=== PATIENT | female | born 1980 | race Caucasian/White ===

== ENCOUNTER 2017-12-15 07:22 | Day surgery (SDC) | payer MEDICAID, SELFPAY ==
[2017-12-15] VITALS (11 sets, daily range): BP systolic 92–132; BP diastolic 55–71; PULSE 54–87; RESP 14–18; TEMP 36.2–37.2; O2SAT 95–99; BMI 30.3; BMI 31.1
[2017-12-15 07:47] LABS: Internal QC Validated? YES +Cl - CLEAR BKGD; Pregnancy, Urine Negative Negative
[2017-12-15 07:52] LABS: Hematocrit 40.9 % (37-47); Mean Corp Hgb Conc 34.2 g/gl (32-36); Mean Corpuscular Hgb 30.6 pg (27.0-32.0); Mean Corpuscular Volume 89.3 fL (81-99); Mean Platelet Vol. 9.7 fl (6.2-12.0); Platelet Count 237 K/mm3 (150-450); RBC Distribution Width CV 13.1 % (11.6-14.6); RBC Distribution Width SD 42.6 fl (35.1-43.9); Red Blood Count 4.58 M/mm3 (4.2-5.4); Scan Indicated on CBC? Y/N NO; White Blood Count 6.8 K/mm3 (4.4-11.0)
[2017-12-15] MEDS: Acetaminophen 500 MG Tablet 1000 MG PO ×3 (07:53→22:37)
[2017-12-15] MEDS: Celecoxib 200 MG Capsule PO (07:53)
--- NOTE | 2017-12-15 09:30 | HYST_PTH ---
PATIENT: NEVIN MAYER LOC: [facility] [place] U#:[id number] AGE/SX: 37/F ROOM: RE12/15/[address]: Dr. Elayne Vines MD : 1980 BED: DIS: 12/16/2017 SPEC #: [id number] RECD: 12/15/17 12:12 STATUS: JACOB FIDEL #: [id number] TAVON: 12/15/17 09:[address]: Elayne Vines DEPT: SURGICAL PATHOLOGY RECD BY: Moncho Bowman ENTERED: 12/15/17 13:13 SP TYPE: HYSTERECT OTHR DR: Dr. Hosea Zamora MD Tissues: Uterus, NOS Procedures: Surgery Specimen Level V HEADER OPERATION: Laparoscopic-assisted vaginal hysterectomy, laparoscopic bilateral salpingectomy PRE-OP DIAGNOSIS: Dysmenorrhea, adenomyosis, status post NovaSure ablation TISSUE SUBMITTED: Uterus and bilateral fallopian tubes MICROSCOPIC DIAGNOSIS Uterus and bilateral fallopian tubes, vaginal hysterectomy and bilateral salpingectomy: Cervix ? mild chronic cystic cervicitis. Endometrium ? extensive changes consistent with endometrial ablation and focal area of disordered proliferative endometrium. Myometrium ? adenomyosis. Bilateral fallopian tubes - no pathologic diagnosis. SATYA:marlene 12/16/17 MICROSCOPIC DESCRIPTION Slides are reviewed. GROSS DESCRIPTION Received in fixative is one container labeled with the patient's name and designated uterus and bilateral fallopian tubes. The specimen consists of a hysterectomy specimen consisting of uterus with cervix and attached left fallopian tube and detached right fallopian tube. The uterus with cervix weighs 91 gm and measures 7.5 x 6 x 4 cm. The serosal surface is focally ragged, otherwise, smooth and glistening. Instrumentation rivera are noted. The ectocervical mucosa is padilla, glistening and unremarkable. The external os is oval in contour. The endocervical canal measures 2.5 cm in length and the endocervical mucosa is padilla, glistening and unremarkable. The endometrial cavity is elongated and shows focal fibrous area and measures 3 cm in length and 0.5 cm in width. The endometrium is congested without any mass lesion and measures 0.1 cm in thickness. Sections of the uterine wall reveal an ill-defined nodular mass measuring 1 cm in greatest dimension. The uninvolved uterine wall measures up to 2 cm in thickness. The detached right fallopian tube measures 6 cm in length and 0.7 cm in diameter. A small portion of the fallopian tube is also noted most likely representing proximal portion which measures 0.5 x 0.5 x 0.3 cm. The left fallopian tube measures 7 cm in length and 0.9 cm in diameter. The fimbrial end is identified. The fallopian tube is interrupted in the middle consistent with previous tubal occlusion. Sections of both fallopian tubes reveal unremarkable cut surfaces. [employer] sections are submitted in nine cassettes as follows: 1 - anterior cervix, 2 - posterior cervix, 3 & 4 - anterior uterine wall, 5 & 6 - posterior uterine wall, 7 ? ill-defined mas, entirely submitted, 8?? right fallopian tube (the detached proximal end is inked black), 9 ? left fallopian tube. / SATYA:rg 12/15/17 TC:5 CPT: 59435
[2017-12-15] MEDS: Cefazolin 2 GM in 0.9% Normal Saline 100 ML IV (10:47)
[2017-12-15] MEDS: Bupivacaine 0.25% 30 ML Vial (11:40)
--- NOTE | 2017-12-15 11:46 | OP.PCM_ITS ---
Report of Operation Date of Procedure: 12/15/17 Pre-Operative Diagnosis: adenomyosis and dysmenorrhea Post-Operative Diagnosis: same Surgery/Procedure Performed:: Laparoscopic assisted vaginal hysterectomy with bilateral salpingectomy Description of Surgical Findings:: Enlarged boggy uterus, normal-appearing cervix, bilateral tubes and ovaries appeared normal other than there was evidence of previous tubal ligation service control operator: Nan Ryan service control operator: Wade Tian Type of Anesthesia:: General Special Medications: none Specimen's removed: uterus and bilateral tubes Drains: Yu Estimated Blood Loss (mL): 30 cc Fluids Replaced: 1300 cc LR Description of Procedure: The patient was taken to the operating room where she was prepped and draped in the normal sterile fashion in the dorsal lithotomy position. A weighted speculum was placed in the vagina and the anterior lip of the cervix was grasped with a tenaculum. The Emma uterine manipulator was placed and a yu catheter placed and attention turned to the abdomen. All port sites were infiltrated with [0.25% Marcaine] before skin incisions were made. A 5 mm [intraumbilical] incision was made. The anterior abdominal wall was tented up with 2 towel clamps while a 5 mm blade less trocar and sleeve were [directly inserted]. Intraperitoneal placement was confirmed with the laparoscope. The pneumoperitoneum was created and the underlying abdominal contents were intact. The patient was placed in Trendelenburg. Right and left lower quadrant ports were placed under direct visualization lateral to the inferior epigastric vessels. The bowel was swept away and the above findings were noted. The antimesenteric portions of the broad ligament under the tubes on both sides was clamped, sealed, and transected with the LigaSure device. The round ligaments were clamped, sealed and transected with the LigaSure device. The bladder flap was taken down with the LigaSure device and blunt dissection. The utero-ovarian ligaments were clamped, sealed, and transected with LigaSure device and hemostasis was noted. The uterine arteries were skeletonized and sealed with the LigaSure device then transected. At this point all the pedicles were hemostatic and the pneumoperitoneum was released. Attention was turned to the vaginal portion of the case. The vaginal epithelium was infiltrated circumferentially around the cervix with [1% Xylocaine with 1-100,000 epinephrine solution]. An incision was made off the anterior cervix with a scalpel and the vaginal epithelium was dissected back with blunt and sharp dissection. The anterior colpotomy incision was made sharply. Entry into the anterior cul-de-sac was confirmed by visualization of the uterine fundus and bowel behind the uterus. The clamp was used to clamp the vaginal epithelium adjacent to the cervix at 3 and 9:00. It was transected with the Knapp scissors and suture ligated. The next pedicle contained the anterior peritoneum. Clamped with a Sumit clamp, transected and suture ligated. At this point the uterine fundus was brought through the anterior colpotomy incision and the uterosacral ligaments and to her vaginal cuff were clamped across with curved Sumit clamps. The uterus and cervix were amputated and the pedicles were secured with 0 Vicryl sutures. The uterus and tubes were handed off. The pedicles were hemostatic. The vaginal cuff was then closed with interrupted 0 Vicryl [id number]-[id number] sutures in a horizontal fashion. A sponge stick was placed in the vagina and attention was turned back to the laparoscopic portion of the case. The pneumoperitoneum was re-created and the pedicles were all visualized and found to be hemostatic. The vaginal cuff was hemostatic. The ureters were seen peristalsing and nondilated on both sides. Pneumoperitoneum was released and the trochars removed. Dr. Garduno closed the skin incisions with Monocryl suture and skin glue. I removed the vaginal instruments and performed the vaginal sweep. I performed the remainder of the procedure with assistance. The Yu was left to straight drain. All sponge lap and needle counts were correct. Patient was awakened and taken to theher recovery room in stable condition. Grafts/Implants Used: None - Complications None - Admit VTE Documentation VTE Present on Admission: No VTE Mechan Device Prophylaxis: SCD's VTE Pharm Prophylaxis ordered?: Yes
[2017-12-15] MEDS: Ketorolac 30 MG/ML Syringe IV ×2 (12:12→17:50)
[2017-12-15] MEDS: Lactated Ringers 1,000 ML 100 ML IV ×2 (13:14→22:15)
[2017-12-15] MEDS: HYDROmorphone HCL 0.5 MG/0.5 ML SYRINGE IV (16:50)
[2017-12-15] MEDS: Ondansetron 4 MG/2 ML Vial IV (18:34)
[2017-12-15] MEDS: lamoTRIgine 100 MG Tablet PO (22:37)
[2017-12-15] MEDS: Docusate Sodium 100 MG Capsule PO (22:39)
[2017-12-15] MEDS: oxyCODONE 5 MG Tablet PO (22:45)
[2017-12-15] MEDS: Methylphenidate HCl 5 MG Tablet PO (22:45)
[2017-12-16] MEDS: Ketorolac 30 MG/ML Syringe IV ×2 (00:11→06:33)
[2017-12-16 00:16] VITALS: BP 115/67; PULSE 75; RESP 16; TEMP 36.8; O2SAT 96
[2017-12-16 04:00] VITALS: BP 103/57; PULSE 74; RESP 16; TEMP 36.7; O2SAT 98
[2017-12-16 06:22] LABS: Hematocrit 34.5 % (37-47); Hemoglobin 11.5 g/dl (12.0-15.0); Mean Corp Hgb Conc 33.3 g/gl (32-36); Mean Corpuscular Hgb 30.4 pg (27.0-32.0); Mean Corpuscular Volume 91.3 fL (81-99); Mean Platelet Vol. 10.1 fl (6.2-12.0); Platelet Count 216 K/mm3 (150-450); RBC Distribution Width CV 13.1 % (11.6-14.6); Red Blood Count 3.78 M/mm3 (4.2-5.4); White Blood Count 6.2 K/mm3 (4.4-11.0)
[2017-12-16 06:24] LABS: Scan Indicated on CBC? Y/N NO
[2017-12-16] MEDS: Acetaminophen 500 MG Tablet 1000 MG PO (06:32)
[2017-12-16] MEDS: Enoxaparin 40 MG/0.4 ML Syringe SC (06:32)
[2017-12-16 07:28] VITALS: O2SAT 96
[2017-12-16 08:34] VITALS: BP 113/40; PULSE 75; RESP 16; TEMP 36.7; O2SAT 97
[2017-12-16 08:48] VITALS: RESP 16
--- NOTE | 2017-12-16 09:07 | PCM.PN.OB ---
Subjective: pain controlled, average lochia, no N/V. Indy oral meds and po - Physical Exam General: Alert, Cooperative, No apparent distress Abdomen: Soft, Non-Distended, Tender - appropriately Skin: Incision - glue intact, no erythema Vital Signs Temp Pulse Resp BP Pulse Ox 98.0 F 75 16 113/40 L 97 12/16/17 08:34 12/16/17 08:34 12/16/17 08:48 12/16/17 08:34 12/16/17 08:34 Oxygen Flow Rate 2 Oxygen Delivery Method Room Air Weight: 79.8 kg Body Mass Index (BMI) 31.1 Intake and Output for Last 24 Hours 12/14/17 12/15/17 12/16/17 23:59 23:59 23:59 Intake Total 3318 / 3318 2525 / 2525 Output Total 435 / 435 2500 / 2500 Balance 2883 / 2883 25 / 25 Laboratory Tests Past 24 Hrs 12/16/17 05:52 WBC 6.2 RBC 3.78 L Hgb 11.5 L Hct 34.5 L MCV 91.3 MCH 30.4 MCHC 33.3 RDW 13.1 RDW Differential 43.0 Plt Count 216 MPV 10.1 Assessment/Plan POD#1 doing we reviewed postop expectations and wound care d/c home
[2017-12-16] MEDS: lamoTRIgine 100 MG Tablet PO (09:08)
[2017-12-16] MEDS: Venlafaxine XR 75 MG Capsule PO (09:08)
[2017-12-16] MEDS: Docusate Sodium 100 MG Capsule PO (09:08)
[2017-12-16] MEDS: Senna/Docusate Sodium 1 Tablet PO (09:09)
[2017-12-16] MEDS: QUEtiapine 25 MG Tablet 50 MG PO (09:09)
--- NOTE | 2017-12-16 09:09 | PCM.DC.AHY ---
Discharge Diet: No Restrictions Discharge Activity: Return to Normal Activity, May Not Drive - while taking narcotic pain medications., May Shower May resume sexual activity in: 6-8 weeks Call your doctor if your incision/area has: Continuous Slow Oozing, Sudden Increased Bleeding, Increased Pain/ Swelling, Increased Redness, Foul Smelling Discharge Call your doctor if you observe: Fever of 101 or Higher, Inability to urinate, Inability to have a bowel movement, Using more than one pad per hour Allergies/Adverse Reactions: Allergies tramadol Allergy (Verified 12/08/17 11:27) Hives HARD TIME BREATHING Medications to take at Discharge Alprazolam 0.5 mg PO BID 04/14/14 Lamotrigine 100 mg PO BID 04/14/14 Desvenlafaxine Succinate [Pristiq] 100 mg PO DAILY 12/08/17 Dextroamphetamine/Amphetamine [Adderall 10 mg Tablet] 5 mg PO BID 12/08/17 Quetiapine Fumarate [Seroquel] 50 mg PO DAILY 12/08/17 Ibuprofen [Motrin] 600 mg PO Q6H PRN #60 tab 12/16/17 Oxycodone HCl/Acetaminophen [Percocet 5/325] 1 - 2 tablet PO Q8 PRN 7 Days #28 tablet 12/16/17 The following prescriptions were given: Oxycodone HCl/Acetaminophen [Percocet 5/325] 1 - 2 tablet PO Q8 PRN 7 Days #28 tablet PRN Reason: Pain Ibuprofen [Motrin] 600 mg PO Q6H PRN #60 tab PRN Reason: Pain Primary Care Physician: Hosea Zamora MD [Primary Care Provider] - Please Follow Up With: Elayne Vines MD - [phone] When: 1-2 and 6 weeks or as needed
[2017-12-16] MEDS: Methylphenidate HCl 5 MG Tablet PO (09:14)
[2017-12-16] MEDS: oxyCODONE 5 MG Tablet PO (11:01)
== END 2017-12-16 11:27 | disposition home or self-care (01) ==
LOC: SDC 07:23 → AC 07:24 → MS3 08:23
PROVIDERS: Anesthesiology; Family Provider Family Medicine; PCP Family Medicine; Visit Provider Obstetrics & Gynecology
PROC: 0UT9FZZ Resection of Uterus, Via Natural or Artificial Opening With Percutaneous Endoscopic Assistance (ICD-10-PCS; CPT 58552; principal; 2017-12-15 09:05)
DX: N80.0 Endometriosis of uterus (principal); N72 Inflammatory disease of cervix uteri; N94.6 Dysmenorrhea, unspecified; Z79.899 Other long term (current) drug therapy; G43.909 Migraine, unspecified, not intractable, without status migrainosus; F41.9 Anxiety disorder, unspecified; K21.9 Gastro-esophageal reflux disease without esophagitis; F17.210 Nicotine dependence, cigarettes, uncomplicated
CPT/HCPCS: 58552; 36415; 81025; 85027; 86850; 86900; 88307; J7120; J2405

== ENCOUNTER → 2019-11-14 08:40 | Outpatient (CLI) | payer MEDICAID, SELFPAY ==
--- NOTE | 2019-11-14 13:25 | NEURO ---
NCS and/or EMG Patient Report DATE OF SERVICE: 11/14/19 Jeimy Peña is a 39 year old female who presents for electrodiagnostic testing of the lower limbs. She reports pain, primarily in the right foot with difficulty moving her toes. Electrodiagnostic findings: Peroneal motor nerve demonstrates normal distal latency amplitude and conduction velocity bilaterally. Normal tibial motor response bilaterally. Normal peroneal tibial F waves. Normal H reflex bilaterally. Sensory responses are normal. On needle EMG, all muscles tested in the lower limb showed no evidence of denervation with normal motor unit action potentials. Electrodiagnostic impression: This is a normal electrodiagnostic study of the lower limbs. There is no electrodiagnostic evidence for peripheral neuropathy, including tarsal tunnel syndrome. If there are any further questions, please do not hesitate to contact me
== END ==
PROVIDERS: Family Provider Family Medicine; PCP Family Medicine
DX: M79.671 Pain in right foot (principal); G62.9 Polyneuropathy, unspecified
CPT/HCPCS: 95886; 95912

== ENCOUNTER 2022-08-30 16:15 | Emergency (ER) | payer MEDICAID, SELFPAY ==
[2022-08-30 16:17] VITALS: BP 133/91; PULSE 94; RESP 16; TEMP 36.6; O2SAT 99; BMI 30.9
[2022-08-30 17:45] LABS: Absolute Lymphocyte Count 1.13 X10^3/uL (0.83-4.51); Absolute Neutrophil Count 3.9 X10^3/uL (2.0-7.7); Basophil# 0.03 X10^3/uL; Basophil% 0.5 % (0-1); Eosinophil# 0.13 X10^3/uL; Eosinophils% 2.2 % (0-5); Hematocrit 40.7 % (37-47); Hemoglobin 13.6 g/dL (12.0-15.0); Lymphocyte # 1.13 X10^3/ul (0.83-4.51); Lymphocyte % 19.3 % (19-41); Mean Corp Hgb Conc 33.4 g/dL (32-36); Mean Corpuscular Hgb 31.2 pg (27.0-32.0); Mean Corpuscular Volume 93.3 fL (81-99); Mean Platelet Vol. 9.1 fl (6.2-12.0); Monocyte# 0.64 X10^3/uL; Monocyte% 10.9 % (0-10); NRBC Flagged by Analyzer 0 % (0-5); Neutrophil # 3.92 X10^3/uL (2.7-7.7); Neutrophil % 66.8 % (47-70); Platelet Count 225 K/mm3 (150-450); RBC Distribution Width CV 12.6 % (11.6-14.6); RBC Distribution Width SD 43.6 fl (35.1-43.9); Red Blood Count 4.36 M/mm3 (4.2-5.4); White Blood Count 5.9 K/mm3 (4.4-11.0)
[2022-08-30 17:59] LABS: Internal QC Validated? YES +Cl - CLEAR BKGD; Pregnancy, Serum, hCG Quali. NEGATIVE Negative
[2022-08-30 18:06] LABS: Anion Gap 7 (5-15); BUN 10 mg/dL (7-18); Calcium,Total 9.2 mg/dL (8.5-10.1); Chloride 107 mmol/L (98-107); Creatinine, Serum 0.56 mg/dL (0.55-1.02); EST Glomerular Filtration Rate 127 mL/min (>60); Est Glom Filt Rate - Afr Amer 154 mL/min (>60); Estimated Creatinine Clearance 108.26 ml/min; Glucose 98 mg/dL (74-106); Potassium 3.7 mmol/L (3.5-5.1); Sodium Level 139 mmol/L (136-145)
--- NOTE | 2022-08-30 18:10 | CT_ITS ---
INDICATION: abdominal pain EXAMINATION: CT Abdomen And Pelvis W/O Contrast Injection TECHNIQUE: Helically acquired images were obtained of the abdomen and pelvis without the use of IV contrast. A radiation dose optimization technique was used for this scan. Oral contrast: None. COMPARISON: None FINDINGS: Evaluation of the solid organs and vascular structures is limited without intravenous contrast. Visualized lung bases: Unremarkable Liver: Unremarkable Gallbladder: Unremarkable Spleen: Unremarkable Pancreas: Unremarkable Adrenal Glands: Unremarkable Kidneys: Unremarkable Vasculature: Unremarkable GI Tract: Several loops of small bowel demonstrates her temperature wall thickening with surrounding mesenteric fat stranding. Lymphadenopathy: None Peritoneum: No ascites. Bladder: Unremarkable Reproductive organs: Unremarkable Bones/Soft tissues: No suspicious osseous or soft tissue lesions CT/Abdomen/Pelvis without Cont IMPRESSION: Findings suspicious for acute enteritis. Electronically Signed: Andrew Pruitt MD at 18:51 EST ,
--- NOTE | 2022-08-30 18:11 | EX.ED.DYSGE1 ---
HPI History of Present Illness Chief Complaint: Abd Pain Narrative Narrative: Patient presents with 2-day history of abdominal pain it is mostly left lower quadrant however she does have some right-sided abdominal pain. No fevers or chills no back pain or flank pain. She is denying urinary symptoms infection and normal urinary in the outpatient environment today. No nausea or vomiting she is denying diarrhea. No upper abdominal pain. PFSH PFSH Home Medications alprazolam 0.5 mg tablet 0.5 mg PO BID 04/14/14 [History Last Taken Unknown] lamotrigine 100 mg tablet 100 mg PO BID 04/14/14 [History Last Taken Unknown] desvenlafaxine succinate 100 mg tablet,extended release 24 hr (Pristiq) 100 mg PO DAILY 12/08/17 [History Last Taken Unknown] dextroamphetamine-amphetamine 10 mg tablet (Adderall) 5 mg PO BID 12/08/17 [History Last Taken Unknown] quetiapine 50 mg tablet (Seroquel) 50 mg PO DAILY 12/08/17 [History Last Taken Unknown] ibuprofen 600 mg tablet 600 mg PO Q6H PRN Pain #60 tabs 12/16/17 [Rx Last Taken Unknown] oxycodone-acetaminophen 5 mg-325 mg tablet 1 - 2 tab PO Q8 PRN Pain 7 days #28 tabs 12/16/17 [Rx Last Taken Unknown] dicyclomine 20 mg tablet 20 mg PO TID #20 tabs 08/30/22 [Rx Last Taken Unknown] Allergy/AdvReac Type Severity Reaction Status Date / Time tramadol Allergy Hives Verified 08/30/22 16:20 Social History Smoking Status: Current every day smoker tobacco type: cigarettes ROS ROS ED ROS Narrative Past medical history: Reviewed, mostly psychiatric disease. Medications: Reviewed Social history: Noncontributory Review of systems: All systems negative except as indicated General: No fever Eyes: No visual changes ENT: No upper airway congestion, normal voice Neck: No neck pain Cardiovascular: No chest pain Respiratory: No shortness of breath or cough Gastrointestinal: Abdominal pain as in HPI Genitourinary: No dysuria Musculoskeletal: Denies myalgias no difficulty with ambulation Skin: No rash Neurological: No memory loss, confusion or any focal weakness Psych: No recent behavioral changes Hematologic: No easy bleeding or easy bruising EXAM Physical Exam Narrative Exam Narrative: Physical exam General: Well nourished, Well developed, No Acute Distress, she does not appear ill Head: Normocephalic, Atraumatic Eyes: Conjunctiva not pale ENT: Moist mucous membranes Neck: Supple, Nontender, No lymphadenopathy Cardiovascular: Regular rate, Regular rhythm Respiratory: No distress, CTA bilaterally Abdomen: Soft, there is left lower quadrant abdominal pain no guarding or rebound. No CVA tenderness. Some right-sided abdominal pain but no specific pain in McBurney's. Back: Nontender, Normal Inspection. Negative for: CVA tenderness Extremities: Nontender, No edema Skin: Normal color, No rash Neurological: Alert, Normal Strength, Normal Sensation Psychological: Normal affect Const Vital Signs: 08/30/22 16:17 Temperature 97.9 F Temperature Source Temporal Pulse Rate 94 Respiratory Rate 16 Blood Pressure 133/91 H Blood Pressure Mean 105 Pulse Ox 99 Oxygen Delivery Method Room Air [facility] Lab Data Labs: Laboratory Results - last 24 hr 08/30/22 08/30/22 08/30/22 17:35 17:35 17:35 WBC 5.9 RBC 4.36 Hgb 13.6 Hct 40.7 MCV 93.3 MCH 31.2 MCHC 33.4 RDW Std Deviation 43.6 RDW Coeff of Santosh 12.6 Plt Count 225 MPV 9.1 Immature Gran % (Auto) 0.300 Neut % (Auto) 66.8 Lymph % (Auto) 19.3 Oliver % (Auto) 10.9 H Eos % (Auto) 2.2 Baso % (Auto) 0.5 Absolute Neuts (auto) 3.9 Absolute Lymphs (auto) 1.13 Nucleated RBC % 0 Sodium 139 Potassium 3.7 Chloride 107 Carbon Dioxide 25.0 Anion Gap 7 BUN 10 Creatinine 0.56 Estim Creat Clear Calc 108.26 Est GFR (MDRD) Af Amer 154 Est GFR (MDRD) Non-Af 127 BUN/Creatinine Ratio 18.0 Glucose 98 Calcium 9.2 Serum , Qual NEGATIVE Radiography Diagnostic Testing: Clinical Impression(s) from Imaging Studies Abdomen/Pelvis CT 08/30/22 18:10 IMPRESSION: Findings suspicious for acute enteritis. Electronically Signed: Andrew Pruitt MD at 18:51 EST , Patient's work-up is unremarkable, there could be enteritis I went back and talked to her again she does not have any nausea vomiting or diarrhea I told her she could start having some but at this time she likely has a self limiting etiology. If she has fever chills or worsening symptoms she is to return. She understands this Discharge Plan Triage Chief Complaint: Abd Pain ED Provider: Shukri Bates Dx/Rx/DC Orders Clinical Impression: Enteritis, Abdominal pain Instructions: Abdominal Pain, Anatomy of the Digestive System Prescriptions: New dicyclomine 20 mg tablet 20 mg PO TID Qty: 20 0RF No Action alprazolam 0.5 MG tablet 0.5 mg PO BID Label Comments: lamotrigine 100 MG tablet 100 mg PO BID Label Comments: dextroamphetamine-amphetamine [Adderall] 10 MG tablet 5 mg PO BID quetiapine [Seroquel] 50 MG tablet 50 mg PO DAILY desvenlafaxine succinate [Pristiq] 100 MG tablet 100 mg PO DAILY oxycodone-acetaminophen 1 TABLET tablet 1 - 2 tab PO Q8 PRN (Reason: Pain) 7 Days Qty: 28 0RF ibuprofen 600 MG tablet 600 mg PO Q6H PRN (Reason: Pain) Qty: 60 1RF Primary Care Provider: Hosea Zamora Referrals: Hosea Zamora MD [Primary Care Provider] - 3-5 Days Disposition Disposition: Home, Self Care
[2022-08-30] MEDS: Ondansetron 4 MG/2 ML Vial IV (18:34)
[2022-08-30] MEDS: Morphine 4 MG/ML Syringe IV (18:34)
[2022-08-30] MEDS: Dicyclomine 20 MG/2 ML Vial IM (19:47)
[2022-08-30 19:50] VITALS: RESP 177; O2SAT 98
== END 2022-08-30 19:51 | disposition home or self-care (01) ==
PROVIDERS: Emergency Provider Emergency Medicine; PCP Family Medicine; Visit Provider Emergency Medicine
DX: K52.9 Noninfective gastroenteritis and colitis, unspecified (principal); F17.210 Nicotine dependence, cigarettes, uncomplicated
CPT/HCPCS: 74176; 80048; 84703; 85025; 96372; 96374; 96375; 99283; J7030; A4216; J2405